=== PATIENT | female | born 1995 | race Caucasian/White ===

== ENCOUNTER 2018-04-23 08:21 | Emergency (ER) | payer OTHER ==
[~2018-04-23] VITALS: Ht 162.6 cm; Wt 81.6 kg
[2018-04-23 08:26] VITALS: BP 101/59
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
== END 2018-04-23 11:20 ==
LOC: ERH 08:21
DX: S09.90XA Unspecified injury of head, initial encounter (principal); V49.40XA Driver injured in collision with unspecified motor vehicles in traffic accident, initial encounter; Y92.411 Interstate highway as the place of occurrence of the external cause
CPT/HCPCS: 81025; J1885